=== PATIENT | male | born 1945 | race African-American/Black ===

== ENCOUNTER 2017-04-10 19:26 | Emergency (ER) | payer MEDICARE, OTHER ==
[~2017-04-10] VITALS: Ht 175.3 cm; Wt 106.8 kg
[2017-04-10 19:39] VITALS: BP 147/84; PULSE 74; RESP 16; O2SAT 98
--- NOTE | 2017-04-10 20:26 | DRSVH ---
PROCEDURE: X-RAY RIGHT HIP COMPLETE, MINIMUM TWO VIEWS ([id number]) INDICATIONS: inj TECHNIQUE: 2 views of the hip were acquired. COMPARISON: None. FINDINGS: Bones: No fractures or dislocations. No suspicious bony lesions. The visualized pelvic ring appear s intact. Soft tissues: No suspicious soft tissue calcifications or masses. IMPRESSION: No acute abnormality seen. Hip joint is well-maintained. Dictated by: Stepan Askew M.D. on 04/10/2017 at 20:22 Approved by: Stepan Askew M.D. on 04/10/2017 at 20:24
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
[2017-04-10] MEDS ORDERED: Ketorolac 15 mg/mL Inj IM ONE (20:55)
[2017-04-10 21:01] VITALS: RESP 16
== END 2017-04-10 21:02 | disposition home or self-care (01) ==
LOC: SED 19:26
DX: S33.5XXA Sprain of ligaments of lumbar spine, initial encounter (principal); V44.5XXA Car driver injured in collision with heavy transport vehicle or bus in traffic accident, initial encounter; Y93.89 Activity, other specified; Y92.481 Parking lot as the place of occurrence of the external cause; Y99.8 Other external cause status; F11.29 Opioid dependence with unspecified opioid-induced disorder
CPT/HCPCS: 73502; 96372; 99284; J1885

== ENCOUNTER 2017-04-14 14:03 | Emergency (ER) | payer MEDICARE, OTHER ==
[~2017-04-14] VITALS: Ht 175.3 cm; Wt 107.0 kg
[2017-04-14 14:07] VITALS: BP 135/87; PULSE 72; RESP 15; O2SAT 100
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
[2017-04-14] MEDS ORDERED: CYCL5TAB PO (16:05)
[2017-04-14 16:18] VITALS: BP 160/96; PULSE 67; RESP 20; O2SAT 96
== END 2017-04-14 16:19 | disposition home or self-care (01) ==
LOC: SED 14:03
DX: S33.9XXA Sprain of unspecified parts of lumbar spine and pelvis, initial encounter (principal); M25.551 Pain in right hip; V43.02XA Car driver injured in collision with other type car in nontraffic accident, initial encounter; Y92.410 Unspecified street and highway as the place of occurrence of the external cause; Y93.89 Activity, other specified; Y99.8 Other external cause status; G89.29 Other chronic pain; F11.20 Opioid dependence, uncomplicated
CPT/HCPCS: 96372; 99283; J1885